=== PATIENT | female | born 1970 | race American Indian/Alaskan Native ===

== ENCOUNTER 2017-10-28 11:00 | Outpatient (CLI) | payer OTHER | END 2017-10-28 11:01 | disposition home or self-care (01) | LOC: SLR 11:00 | PROVIDERS: ATTEND Otolaryngology | DX: G47.33 Obstructive sleep apnea (adult) (pediatric) (principal) | CPT/HCPCS: G0399 ==

== ENCOUNTER 2017-11-12 11:00 | Outpatient (CLI) | payer OTHER | END 2017-11-12 11:01 | disposition home or self-care (01) | LOC: SLR 11:00 | PROVIDERS: ATTEND Otolaryngology | DX: G47.33 Obstructive sleep apnea (adult) (pediatric) (principal) | CPT/HCPCS: 95811 ==

== ENCOUNTER 2018-10-07 05:55 | Day surgery (SDC) | payer OTHER ==
--- NOTE | 2018-10-07 07:43 | Anesthesia Day of Surgery ---
Anesthesia Day of Surgery - Day of Surgery Patient Examined: Yes Patient H&P Reviewed: Yes Patient is NPO: Yes
--- NOTE | 2018-10-07 07:47 | Anesthesia Consultation ---
Anesthesia Consult and Med Hx Date of service: 10/07/18 - Airway Anesthetic Teeth Evaluation: Good ROM Head & Neck: Adequate Mental/Hyoid Distance: Adequate Mallampati Class: Class II Intubation Access Assessment: Probably Good - Pre-Operative Health Status ASA Pre-Surgery Classification: ASA3 Proposed Anesthetic Plan: MAC - Pulmonary Hx Smoking: Yes (Former) Hx Sleep Apnea: Yes (cpap) - Central Nervous System Hx Neuromuscular Disorder: Yes (fibromyalgia, spinal stenosis) Hx Psychiatric Problems: No - Other Systems Hx Cancer: No Hx Obesity: Yes (BMI 41)
[2018-10-07] MEDS ORDERED: XYLOCAINE 1% 20 mL ONE (07:53)
[2018-10-07] MEDS ORDERED: DIPRIVAN 10 MG/ML IV ONE (07:53)
[2018-10-07] MEDS ORDERED: VERSED IV ONE (07:53)
[2018-10-07] MEDS ORDERED: NACL 0.9% 1000 ML 1,000 ML IV SCH (08:00)
[2018-10-07 08:39] VITALS: BP 120/76
--- NOTE | 2018-10-07 09:59 | Operative Report ---
SURGEON: Hayder Bai MD [employer] CONSULTANT: Cristian Crawford MD PREOPERATIVE DIAGNOSES: Dyspepsia and morbid obesity. POSTOPERATIVE DIAGNOSES: 1. Hiatal hernia, 2 cm. 2. Gastritis. PROCEDURE: Esophagogastroduodenoscopy. ANESTHESIA: MAC. COMPLICATIONS: None. BLEEDING: None. SPECIMENS: None. INDICATIONS: The patient is a 48-year-old female with a history of morbid obesity. She is here for a preoperative EGD in preparation for her weight loss surgery. Informed consent was obtained. DESCRIPTION OF PROCEDURE: The patient was brought to the GI suite where she was placed in the left lateral decubitus position and underwent MAC anesthesia. A bite block was placed and a timeout was called. A standard adult gastroscope was inserted into the oropharynx, down the esophagus, into the stomach. In the antrum, she had evidence of gastritis. Intubation of the pylorus was no other abnormalities. The scope was retroflexed and I noted a small 2 cm hiatal hernia. There were no other abnormalities on view. With this, the air was suctioned out. The gastroscope was removed. The patient tolerated the procedure well with no immediate complications and was transferred to the PACU in stable condition. JOB# [id number] RACHEL/CHAS
== END 2018-10-07 05:56 | disposition home or self-care (01) ==
LOC: GIO 05:55
PROVIDERS: ATTEND Specialist
DX: K29.70 Gastritis, unspecified, without bleeding (principal); K44.9 Diaphragmatic hernia without obstruction or gangrene; E66.01 Morbid (severe) obesity due to excess calories; G47.30 Sleep apnea, unspecified; K30 Functional dyspepsia; Z68.41 Body mass index [BMI] 40.0-44.9, adult; Z87.891 Personal history of nicotine dependence; Z98.890 Other specified postprocedural states
CPT/HCPCS: 43235; 81025; J2250; J2704; J7030

== ENCOUNTER 2018-10-14 05:52 | Inpatient (IN) | payer OTHER ==
[2018-10-14] MEDS ORDERED: FLAGYL 500 MG/100 ML 500 MG/100 ML BAG IV NR ×2 (06:00→07:00)
[2018-10-14] MEDS ORDERED: ANCEF/STERILE WATER 2 GM/20 ML IV NR (06:00)
[2018-10-14] MEDS ORDERED: APRESOLINE IV PRN (06:38)
[2018-10-14] MEDS ORDERED: MYLICON PO PRN (06:38)
[2018-10-14] MEDS ORDERED: ZOFRAN IV PRN ×2 (06:38→11:52)
[2018-10-14] MEDS ORDERED: NORCO PO PRN (06:38)
[2018-10-14] MEDS ORDERED: MORPHINE IV PRN (06:38)
[2018-10-14] MEDS ORDERED: REGLAN IV PRN (06:38)
[2018-10-14] MEDS ORDERED: TRANSDERM-SCOP TD SCH (07:00)
[2018-10-14] MEDS ORDERED: ANCEF/STERILE WATER 2 GM/20 ML 2 GM/20 ML SYRINGE IV NR (07:00)
[2018-10-14] MEDS ORDERED: LOVENOX SUB-Q NR ×2 (07:00→10:00)
[2018-10-14] MEDS: LACTATED RINGERS 1,000 ML IV SCH ×3 (08:55→23:51)
[2018-10-14] MEDS ORDERED: VERSED IV NR (09:18)
--- NOTE | 2018-10-14 09:24 | Anesthesia Consultation ---
Anesthesia Consult and Med Hx Date of service: 10/14/18 - Airway Anesthetic Teeth Evaluation: Good ROM Head & Neck: Adequate Mental/Hyoid Distance: Adequate Mallampati Class: Class III Intubation Access Assessment: Possibly Difficult - Pulmonary Exam CTA: Yes - Cardiac Exam Cardiac Exam: RRR - Pre-Operative Health Status ASA Pre-Surgery Classification: ASA2 Proposed Anesthetic Plan: General - Pulmonary Hx Smoking: Yes (quit 09/2017) Hx Respiratory Symptoms: No COPD: No Hx Sleep Apnea: Yes (compliant with CPAP) - Cardiovascular System Hx Hypertension: No Hx Heart Attack/AMI: No Hx Percutaneous Transluminal Coronary Angioplasty (PTCA): No Hx Cardia Arrhythmia: No - Central Nervous System Hx Seizures: No CVA: No Hx Back Pain: Yes (fibromyalgia, spinal stenosis) - Gastrointestinal Hx Gastroesophageal Reflux Disease: No - Endocrine Hx Renal Disease: No Hx Liver Disease: No Hx Insulin Dependent Diabetes: No Hx Non-Insulin Dependent Diabetes: No Hx Thyroid Disease: No - Hematic Hx Anemia: No - Other Systems Hx Obesity: Yes (BMI 41) - Additional Comments Anesthesia Medical History Comments: No prior GA. No FHx anesthetic complications.
--- NOTE | 2018-10-14 09:24 | Anesthesia Day of Surgery ---
Anesthesia Day of Surgery - Day of Surgery Patient Examined: Yes Patient H&P Reviewed: Yes Patient is NPO: Yes
[2018-10-14] MEDS ORDERED: SUBLIMAZE IV PRN (09:25)
[2018-10-14] MEDS ORDERED: MARCAINE-EPI 0.5%-1:200,000 INFILTRATI ONE ×2 (09:48→10:42)
[2018-10-14] MEDS ORDERED: XYLOCAINE 1% 20 mL ONE (09:48)
[2018-10-14] MEDS ORDERED: SUBLIMAZE ONE (09:57)
[2018-10-14] MEDS ORDERED: XYLOCAINE MPF 2% ONE (09:57)
[2018-10-14] MEDS ORDERED: ZOFRAN ONE (09:57)
[2018-10-14] MEDS ORDERED: ZEMURON IV ONE ×2 (09:57→11:18)
[2018-10-14] MEDS ORDERED: DIPRIVAN 10 MG/ML IV ONE ×2 (09:58→11:36)
[2018-10-14] MEDS ORDERED: XYLOCAINE 1% 20 mL INFILTRATI ONE (10:42)
[2018-10-14] MEDS ORDERED: DECADRON ONE (11:18)
[2018-10-14] MEDS ORDERED: NACL 0.9% IR ONE (11:20)
[2018-10-14] MEDS ORDERED: ROBINUL ONE (11:21)
[2018-10-14] MEDS ORDERED: BLOXIVERZ ONE (11:21)
[2018-10-14] MEDS: TORADOL IV SCH ×2 (12:12→18:27)
[2018-10-14] MEDS: DILAUDID IV PRN ×3 (12:16→21:00)
[2018-10-15] MEDS: DILAUDID IV PRN ×2 (00:11→05:40)
[2018-10-15] MEDS: TORADOL IV SCH ×5 (00:22→14:50)
[2018-10-15 04:41] LABS: Basophils % (Auto) 0.2 % (0.0-1.8); Eosinophils % (Auto) 0.1 % (0.0-4.3); Hematocrit 32.1 % (30.3-42.9); Hemoglobin 10.9 gm/dl (10.1-14.3); Lymphocytes # (Auto) 2.3 K/mm3 (1.2-5.4); Lymphocytes % (Auto) 17.5 % (13.4-35.0); Mean Corpuscular HGB Conc 34 % (30-34); Mean Corpuscular Volume 89 fl (79-97); Monocytes # (Auto) 0.9 K/mm3 (0.0-0.8); Monocytes % (Auto) 6.6 % (0.0-7.3); Red Blood Count 3.59 M/mm3 (3.65-5.03); Red Cell Distribution Width 13.5 % (13.2-15.2)
[2018-10-15 04:50] LABS: BUN/Creatinine Ratio 13; Blood Urea Nitrogen 9 mg/dL (7-17); Calcium 8.7 mg/dL (8.4-10.2); Hemolysis Index 2
[2018-10-15 05:00] LABS: Platelet Count 254 K/mm3 (140-440)
--- NOTE | 2018-10-15 06:56 | Progress Note ---
Assessment and Plan 48F s/p lap sleeve gastrectomy 10/14/18 complicated by stapling across temperature probe, requiring intraop revision of proximal sleeve. #1 s/p LS #2 foreign body complication requiring intraop revision - I discussed with her the intraop complication and explained that she will be undergoing a swallow study today to evaluate for leak or complications. If this study is normal, will start bariatric clear liquids. - cont NPO for now - cont IVF - LEON drain to bulb drainage - encourage ambulation - IS use Subjective Date of service: 10/15/18 Interval history: No acute issues overnight. Denies N/V/severe abd pain. She has minor postop pain. Ambulated. Had one episode of tachycardia last night, now resolved. Objective - Exam Narrative Exam: Gen: AAO, NAD Heart: RRR Lungs: CTAB Abd: MO, soft, NT, ND. Bandages c/d/i. LEON drain serosanguinous. Ext: No LE edema - Constitutional Vitals: Vital Signs - 12hr 10/14/18 10/14/18 10/15/18 19:43 23:41 04:19 Temperature 98.1 F 98.0 F 98.0 F Pulse Rate 113 H 58 L 49 L Respiratory 18 18 18 Rate Blood Pressure 125/67 116/63 Blood Pressure 140/72 [Left] O2 Sat by Pulse 96 94 96 Oximetry - Labs CBC & Chem 7: 10/15/18 04:00 10/15/18 04:00 Labs: Abnormal lab results 10/15/18 10/15/18 Range/Units 04:00 04:00 WBC 13.1 H (4.5-11.0) K/mm3 RBC 3.59 L (3.65-5.03) M/mm3 Ashley # 0.9 H (0.0-0.8) K/mm3 Seg Neutrophils % 75.6 H (40.0-70.0) % Seg Neutrophils # 9.9 H (1.8-7.7) K/mm3 Sodium 136 L (137-145) mmol/L Glucose 114 H (65-100) mg/dL Medications & Allergies - Medications Allergies/Adverse Reactions: Allergies No Known Allergies Allergy (Verified 10/07/18 07:05) Home Medications: Home Medications Medication Instructions Recorded Confirmed Last Taken Type No Known Home Medications [No 10/06/18 10/07/18 Unknown History Reported Home Medications] Active Medications: Generic Name Dose Route Start Last Admin Trade Name Freq PRN Reason Stop Dose Admin Enoxaparin Sodium 40 mg 10/15/18 10:00 Lovenox SUB-Q QDAY SPEEDY Hydralazine HCl 10 mg 10/14/18 06:38 10/14/18 12:55 Apresoline IV 10 mg Q6H PRN Administration SBP > 150 Hydromorphone HCl 0.5 mg 10/14/18 06:38 10/15/18 05:40 Dilaudid IV 0.5 mg Q3H PRN Administration Pain , Severe (7-10) Lactated Ringer's 1,000 mls @ 150 mls/hr 10/14/18 07:00 10/14/18 23:51 Lactated Ringers IV 150 mls/hr DIRECT SPEEDY Administration Ketorolac Tromethamine 30 mg 10/14/18 07:00 10/15/18 01:42 Toradol IV 10/16/18 06:59 30 mg Q6H SPEEDY Administration Metoclopramide HCl 10 mg 10/14/18 06:38 10/14/18 20:59 Reglan IV 10 mg Q6H PRN Administration Nausea And Vomiting Morphine Sulfate 2 mg 10/14/18 06:38 Morphine IV Q4H PRN Pain, Moderate (4-6) Ondansetron HCl 4 mg 10/14/18 11:52 10/14/18 12:11 Zofran IV 4 mg Q6H PRN Administration Nausea And Vomiting Scopolamine 1 each 10/14/18 07:00 10/14/18 08:45 Transderm-Scop TD 1 each Q3D SPEEDY Administration
--- NOTE | 2018-10-15 09:49 | Fluoroscopy Report ---
UPPER GI SERIES WITHOUT AIR CONTRAST. HISTORY: Recent sleeve gastrectomy, evaluate for leak. Nausea. FINDINGS: A modified upper GI with Gastrografin was performed to evaluate for a leak at the sleeve ga strectomy site. 21 fluoroscopic images were captured during this exam. A 2.1 minutes of fluoroscopy t juancarlos. Deglutition was normal. No aspiration. The esophagus is normal caliber mucosal pattern. No hiatal her aurelio. Sleeve gastrectomy changes are noted. The gastric cavity is within normal limits otherwise. There is no evidence for mucosal lesion or extravasation of contrast. No obstruction. The duodenum is normal. IMPRESSION: Unremarkable exam. No evidence for leakage of contrast. No obstruction. Signer Name: Fawad Dickens Jr, MD Signed: 10/15/2018 9:45 AM Workstation Name: [id number]
--- NOTE | 2018-10-15 09:57 | Progress Note ---
Assessment and Plan UGI report finalized. No leak or obstruction seen. Images reviewed. I called and informed the patient of her results. Bariatric CLD placed. She understands she will go home with the drain. Plan for discharge home if tolerates liquids. Subjective Date of service: 10/15/18 Objective - Constitutional Vitals: Vital Signs - 12hr 10/14/18 10/15/18 10/15/18 23:41 04:19 07:20 Temperature 98.0 F 98.0 F 98.0 F Pulse Rate 58 L 49 L 50 L Respiratory 18 18 18 Rate Blood Pressure 125/67 116/63 108/56 O2 Sat by Pulse 94 96 100 Oximetry - Labs CBC & Chem 7: 10/15/18 04:00 10/15/18 04:00 Labs: Abnormal lab results 10/15/18 10/15/18 Range/Units 04:00 04:00 WBC 13.1 H (4.5-11.0) K/mm3 RBC 3.59 L (3.65-5.03) M/mm3 [place] # 0.9 H (0.0-0.8) K/mm3 Seg Neutrophils % 75.6 H (40.0-70.0) % Seg Neutrophils # 9.9 H (1.8-7.7) K/mm3 Sodium 136 L (137-145) mmol/L Glucose 114 H (65-100) mg/dL Medications & Allergies - Medications Allergies/Adverse Reactions: Allergies No Known Allergies Allergy (Verified 10/07/18 07:05) Home Medications: Home Medications Medication Instructions Recorded Confirmed Last Taken Type No Known Home Medications [No 10/06/18 10/07/18 Unknown History Reported Home Medications] Active Medications: Generic Name Dose Route Start Last Admin Trade Name Freq PRN Reason Stop Dose Admin Enoxaparin Sodium 40 mg 10/15/18 10:00 10/15/18 09:43 Lovenox SUB-Q 40 mg QDAY SPEEDY Administration Hydralazine HCl 10 mg 10/14/18 06:38 10/14/18 12:55 Apresoline IV 10 mg Q6H PRN Administration SBP > 150 Hydromorphone HCl 0.5 mg 10/14/18 06:38 10/15/18 05:40 Dilaudid IV 0.5 mg Q3H PRN Administration Pain , Severe (7-10) Lactated Ringer's 1,000 mls @ 150 mls/hr 10/14/18 07:00 10/14/18 23:51 Lactated Ringers IV 150 mls/hr DIRECT SPEEDY Administration Ketorolac Tromethamine 30 mg 10/14/18 07:00 10/15/18 09:42 Toradol IV 10/16/18 06:59 30 mg Q6H SPEEDY Administration Metoclopramide HCl 10 mg 10/14/18 06:38 10/14/18 20:59 Reglan IV 10 mg Q6H PRN Administration Nausea And Vomiting Morphine Sulfate 2 mg 10/14/18 06:38 Morphine IV Q4H PRN Pain, Moderate (4-6) Ondansetron HCl 4 mg 10/14/18 11:52 10/14/18 12:11 Zofran IV 4 mg Q6H PRN Administration Nausea And Vomiting Scopolamine 1 each 10/14/18 07:00 10/14/18 08:45 Transderm-Scop TD 1 each Q3D SPEEDY Administration
[2018-10-15] MEDS ORDERED: LOVENOX SUB-Q SCH (10:00)
[2018-10-15] MEDS ORDERED: NORCO PO PRN (11:39)
[2018-10-15 12:17] VITALS: BP 122/69
--- NOTE | 2018-10-15 12:57 | Discharge Summary ---
Providers - Providers Date of Admission: 10/14/18 05:52 Date of discharge: 10/15/18 Attending physician: NAN BAI Primary care physician: TAMMI ROBERTS Hospitalization Reason for admission: postop Condition: Good Pertinent studies: 10/15/18: UGI - shows no leak or obstruction Procedures: 10/14/18: Laparoscopic sleeve gastrectomy, removal of foreign body and repair of sleeve (see op note by Dr Bai) Hospital course: 48F admitted after her operation for postop care. Her operation was complicated by intraop stapling across a foreign body (temp probe), which required removal of the foreign body and repair of the sleeve. A LEON drain was left. Postoperatively, she was managed on the general surgical floor. She was kept NPO. On POD#1, she had a swallow study which showed no evidence of leak or obstruction, and thus she was started on a CLD, which she tolerated. Her vitals were WNL. The events of the operation was discussed with the patient with ample opportunity for questions. She was instructed on care of the drain, and discharged home in stable condition with instructions for follow-up. Disposition: DC-01 TO HOME OR SELFCARE Core Measure Documentation - Palliative Care Palliative Care/ Comfort Measures: Not Applicable - Core Measures Any of the following diagnoses?: none - VTE Discharge Requirements Deep Vein Thrombosis/Pulmonary Embolism Present on Admission: No - Acute [place] Discharge Requirements Aspirin at discharge: No Reason for no aspirin on DC: Surgical contraindication - Heart Failure Discharge Requirements ADRIÁN/ARB for LVSD if EF <40%: Not Applicable - Stroke Discharge Requirements Statin for LDL = or >70 mg/dl on DC: Not Applicable Exam - Physical Exam Narrative exam: Gen: AAO, NAD Heart: RRR Lungs: CTAB Abd: MO, soft, NT, ND. Bandages c/d/i. LEON drain serosanguinous. Ext: No LE edema - Constitutional Vitals: Temp Pulse Resp BP Pulse Ox 98.4 F 49 L 22 122/69 97 10/15/18 11:20 10/15/18 11:20 10/15/18 11:20 10/15/18 11:20 10/15/18 11:20 Plan Diet: clear liquids Wound: keep clean and dry, change dressing, drain care as instructed Special Instructions: no heavy lifting Additional Instructions: Fu Saturday with Dr Bai for drain removal Follow up with: TAMMI ROBERTS MD [Primary Care Provider] - 7 Days
== END 2018-10-15 16:00 | disposition home or self-care (01) | DRG 620 ==
LOC: 3A 05:52 → 3B-SURG 13:22
PROVIDERS: ADMIT Specialist; ATTEND Specialist
PROC: 0DB64Z3 Excision of Stomach, Percutaneous Endoscopic Approach, Vertical (ICD-10-PCS; principal; 2018-10-14)
PROC: 0DC64ZZ Extirpation of Matter from Stomach, Percutaneous Endoscopic Approach (ICD-10-PCS; 2018-10-14)
DX: E66.01 Morbid (severe) obesity due to excess calories (principal); K91.81 Other intraoperative complications of digestive system; K95.89 Other complications of other bariatric procedure; K30 Functional dyspepsia; G47.30 Sleep apnea, unspecified; M79.7 Fibromyalgia; M48.00 Spinal stenosis, site unspecified; Z82.49 Family history of ischemic heart disease and other diseases of the circulatory system; Z83.3 Family history of diabetes mellitus; Z68.41 Body mass index [BMI] 40.0-44.9, adult; Z87.891 Personal history of nicotine dependence; Y83.8 Other surgical procedures as the cause of abnormal reaction of the patient, or of later complication, without mention of misadventure at the time of the procedure; Y92.238 Other place in hospital as the place of occurrence of the external cause
CPT/HCPCS: 36415; 74241; 80048; 81025; 85025; 88307; 94760; G0378; A4217; J0360; J0690; J1100; J1170; J1650; J1885; J2250; J2270; J2405; J2704; J2710; J2765; J3010; J7120; Q9963